=== PATIENT | female | born 1950 | race Caucasian/White ===

== ENCOUNTER → 2017-02-11 | Day surgery (SDC) | payer MEDICARE ==
[~2017-02-11] VITALS: Ht 165.1 cm; Wt 75.8 kg
[~2017-02-11] MED LIST: ATEN25TA PO; FUR20 PO; OMPR20CCR PO; Sodium Chloride LOK Flush 10 mL Syringe IV PRN; fentaNYL-PF 50 mCg/mL 2 mL Inj IVPUSH PRN
[2017-02-11 13:25] VITALS: BP 151/78; PULSE 66; RESP 15; O2SAT 100
[2017-02-11] MEDS: 0.9% Sodium Chloride 1,000 ML IV SCH ×2 (14:14→14:21)
[2017-02-11 14:35] VITALS: BP 143/71; PULSE 62; RESP 16; O2SAT 100
[2017-02-11 14:45] VITALS: BP 128/65; PULSE 56; RESP 16; O2SAT 98
[2017-02-11 14:55] VITALS: BP 145/62; PULSE 57; RESP 16; O2SAT 100
--- NOTE | 2017-02-11 16:32 | ENDO ---
[address] [address] ENDOSCOPY PROCEDURE PATIENT: MIRANDA DIAL : 1950 MR#: [id number] ADMIT: 02/11/2017 JOB ID: [id number] DATE: 02/11/2017 PROCEDURE: Colonoscopy. INDICATION: Family history of colon cancer. The patient's brother was 40 when he was diagnosed with colon cancer. ANESTHESIA: The patient's ASA classification is two. Mallampati score is two. MEDICATIONS: Versed 3 mg, fentanyl 75 mcg. INSTRUMENT USED: PCF H 180 AL PREPARATION QUALITY: Fair. PROCEDURE DETAILS: After informed consent was obtained, the patient was brought into the GI suite, where she was placed on oxygen via nasal cannula and monitored with continuous pulse oximeter, telemetry, and blood pressure monitoring. A time-out was performed, then she was placed in the left lateral decubitus position and medications were administered for sedation. Digital rectal exam was performed which was unremarkable. The colonoscope was then inserted into the rectum and advanced under direct visualization to the cecum, which was identified by the presence of the ileocecal valve and appendiceal orifice. Once the cecum was reached, the colonoscope was withdrawn back into the rectum as the mucosa and lumen were examined. In the rectum, retroflexion was performed. Following retroflexion, the remaining air in the rectum was suctioned and the procedure was completed. FINDINGS: In the transverse colon, there was an approximately 5-6 mm sessile polyp that was removed with a cold snare. IMPRESSION: Transverse colon polyp. RECOMMENDATIONS: 1. Avoid NSAIDs and anticoagulants for 72 hours. 2. Repeat colonoscopy in five years. COMPLICATIONS: None. ESTIMATED BLOOD LOSS: Zero.
--- NOTE | 2017-02-17 11:23 | PATH ---
SURGICAL PATHOLOGY Attending Physician:Anni Hernández CASE STATUS: Signed Out PATIENT NAME: MIRANDA DIAL PID: [id number] : 1950 DATE COLLECTED:02/11/2017 00:00 SPECIMEN: Colon, Polyp CLINICAL HISTORY: 1. TRANSVERSE COLON POLYP FINAL DIAGNOSIS: Transverse Colon Polyp: Tubular adenoma. ICD10: D12.3 GROSS DESCRIPTION: The specimen is received in one formalin filled container labeled with the patient's name, sublabeled "transverse colon polyp" and consists of a 0.3 x 0.3 x 0.2 CM portion of tissue which is entirely submitted in one cassette. 02/12/2017 [facility] ICD-9 CODES: CPT CODES: 1: 83254 Electronically Signed Out Isaias Pelaez MD [facility] [address], [place] [address] Technical component performed at [facility], [address] [place] [address] [address], [place], [address]
== END | disposition home or self-care (01) ==
LOC: END 01:03
PROVIDERS: ATTEND Internal Medicine Gastroenterology
DX: Z12.11 Encounter for screening for malignant neoplasm of colon (principal); Z83.71 Family history of colonic polyps; D12.3 Benign neoplasm of transverse colon; I10 Essential (primary) hypertension; K21.9 Gastro-esophageal reflux disease without esophagitis; G62.9 Polyneuropathy, unspecified; M54.16 Radiculopathy, lumbar region; Z90.710 Acquired absence of both cervix and uterus; Z87.891 Personal history of nicotine dependence
CPT/HCPCS: 45385; 99153; G0500; J2250; J3010; J7030